=== PATIENT | female | born 1965 ===

== ENCOUNTER 2017-12-07 14:48 | Emergency (ER) | payer BC ==
[2017-12-07 15:05] VITALS: TEMP 97.4
--- NOTE | 2017-12-07 16:01 | C.PDOC ---
History Of Present Illness 52 year old female presents to the emergency department due to a retained tampon inside her vagina. Time Seen by Provider: 12/07/17 15:25 Chief Complaint (Nursing): Female Genitourinary History Per: Patient History/Exam Limitations: no limitations Past Medical History Reviewed: Historical Data, Nursing Documentation, Vital Signs Vital Signs: Last Vital Signs Temp 97.4 F L 12/07/17 15:03 Pulse 84 12/07/17 16:05 Resp 18 12/07/17 16:05 BP 130/80 12/07/17 16:05 Pulse Ox 99 12/07/17 16:05 - Medical History PMH: No Chronic Diseases Surgical History: No Surg Hx Family History: States: No Known Family Hx - Social History Hx Alcohol Use: Yes Hx Substance Use: No - Immunization History Hx Tetanus Toxoid Vaccination: No Hx Influenza Vaccination: No Hx Pneumococcal Vaccination: No Physical Exam - Physical Exam Gastrointestinal/Abdominal: Normal Exam, Soft, No Tenderness Pelvic: Normal External Exam, Vaginal Bleeding (some bleeding noted), No Other ( foreign body) ED Course And Treatment O2 Sat by Pulse Oximetry: 100 Disposition Counseled Patient/Family Regarding: Diagnosis, Need For Followup - Disposition Disposition: HOME/ ROUTINE Disposition Time: 15:59 Condition: GOOD Additional Instructions: Please follow up with your sterilization specialist as needed. Return to ER for any worse symptoms. Recommend sanitary napkin use. Forms: [facility] ([place]an), General Discharge Instructions - Clinical Impression Clinical Impression: Normal pelvic exam - PA / [employer]ACHINE [employer] / Resident Statement MD/DO has reviewed & agrees with the documentation as recorded. - Scribe Statement The provider has reviewed the documentation as recorded by the Scribe (Liam Farrell) All medical record entries made by the Scribe were at my direction and personally dictated by me. I have reviewed the chart and agree that the record accurately reflects my personal performance of the history, physical exam, medical decision making, and the department course for this patient. I have also personally directed, reviewed, and agree with the discharge instructions and disposition.
[2017-12-07 16:06] VITALS: BP 130/80; PULSE 84; RESP 18
[2017-12-07 16:20] VITALS: O2SAT 100
== END 2017-12-07 16:12 | disposition home or self-care (01) ==
LOC: C.ER 14:48
DX: Z04.8 Encounter for examination and observation for other specified reasons (principal)